=== PATIENT | female | born 1960 | race Caucasian/White ===

== ENCOUNTER 2019-10-15 07:23 | Emergency (ER) | payer OTHER ==
[~2019-10-15] VITALS: Ht 160 cm; Wt 79.4 kg
[2019-10-15 07:29] VITALS: BP_SYST 189
[2019-10-15] MEDS ORDERED: ONDANSETRON HCL 4 MG/2 ML VIAL IVP ONE (08:00)
[2019-10-15] MEDS ORDERED: LORazepam 2 MG/ML VIAL IVP ONE (08:00)
[2019-10-15] MEDS ORDERED: NACL 0.9% 1,000 ML IV ONE (08:00)
[2019-10-15] MEDS ORDERED: MECLIZINE HCL 25 MG TABLET (ANITVERT) PO ONE (08:00)
[2019-10-15 08:31] LABS: BASOPHILS % (AUTO) 0.4 % (0.0-2.0); EOSINOPHILS # (AUTO) 0.2 K/uL (0.0-0.4); EOSINOPHILS % (AUTO) 2.9 % (0.0-4.0); HEMATOCRIT 39.7 % (36-48); HEMOGLOBIN 13.6 g/dL (12.0-16.0); LYMPHOCYTES # (AUTO) 1.8 K/uL (1.0-5.5); LYMPHOCYTES % (AUTO) 21.9 % (20.5-51.5); MEAN CORPUSCULAR HEMOGLOBIN 32 pg (27-31); MEAN CORPUSCULAR HGB CONC 34 % (32-36); MEAN CORPUSCULAR VOLUME 93 fL (79.0-98.0); MONOCYTES # (AUTO) 0.7 K/uL (0.0-1.0); MONOCYTES % (AUTO) 8.5 % (1.7-9.3); NEUTROPHILS # (AUTO) 5.4 K/uL (1.8-7.7); NEUTROPHILS % (AUTO) 66.3 % (40.0-70.0); PLATELET COUNT (AUTO) 249 K/uL (130-430); RED BLOOD CELL COUNT(AUTO) 4.27 MIL/uL (4.2-6.2); RED CELL DISTRIBUTION WIDTH 14.2 % (9.0-15.0); WHITE BLOOD COUNT (AUTO) 8.2 K/uL (4.8-10.8)
[2019-10-15 08:49] LABS: CALCIUM 8.8 mg/dL (8.4-11.0); CREATININE 0.77 mg/dL (0.55-1.30)
[2019-10-15 08:54] LABS: ALBUMIN 3.4 g/dL (3.4-4.8); TOTAL BILIRUBIN 0.3 mg/dL (0.0-1.0)
[2019-10-15 09:25] LABS: BILIRUBIN,URINE NEGATIVE (NEGATIVE); BLOOD, URINE 2+ (NEGATIVE); CLARITY/URINE CLEAR (CLEAR); COLOR,URINE YELLOW (YELLOW); GLUCOSE,URINE NEGATIVE (NEGATIVE); KETONES,URINE NEGATIVE (NEGATIVE); LEUKOCYTE ESTERASE ,URINE TRACE (NEGATIVE); NITRITE, URINE NEGATIVE (NEGATIVE); PROTEIN URINE NEGATIVE (NEGATIVE); UROBILINOGEN,URINE 0.2 (0.2-1.0)
[2019-10-15 09:29] LABS: BACTERIA,URINE RARE /HPF (None Seen); RBC,URINE 0-3 /HPF (0-3)
[2019-10-15 09:30] LABS: BARBITURATE, URINE NEGATIVE (NEG <=200); BENZODIAZEPINE, URINE POSITIVE (NEG <=150); CANNABINOID, URINE NEGATIVE (NEG <=50); COCAINE, URINE NEGATIVE (NEG <=150); METHAMPHETAMINES SCREEN,URINE NEGATIVE (NEG <=500); OPIATE, URINE NEGATIVE (NEG <=100); PHENCYCLIDINE SCREEN,URINE NEGATIVE (NEG <=25); UR TRICYCLIC ANTIDEPRESSANTS NEGATIVE (NEG <=300); URINE AMPHETAMINE NEGATIVE (NEG <=500); URINE METHADONE NEGATIVE (NEG <=200); URINE OXYCODONE SCREEN NEGATIVE (NEG <=100); URINE PROPOXYPHENE SCREEN NEGATIVE (NEG <=300)
[2019-10-15 10:51] VITALS: BP_SYST 112
== END 2019-10-15 10:51 | disposition home or self-care (01) ==
LOC: SED 07:23
DX: R42 Dizziness and giddiness (principal); F41.9 Anxiety disorder, unspecified; R03.0 Elevated blood-pressure reading, without diagnosis of hypertension; F17.210 Nicotine dependence, cigarettes, uncomplicated
CPT/HCPCS: 36415; 80053; 80307; 81000; 85025; 93005; 96360; 99284; J2060; J7030; J8597; J2405

== ENCOUNTER 2022-07-19 15:16 | Inpatient (IN) | payer OTHER ==
[~2022-07-19] VITALS: Ht 160 cm; Wt 81.6 kg
--- NOTE | 2022-07-19 15:20 | NUR ---
ER DR. WILLS EXAMINING PT
[2022-07-19 15:22] VITALS: BP_SYST 157
--- NOTE | 2022-07-19 15:25 | NUR ---
RECEIVED PT FROM CLINTON HANSON. PT BIB FRIEND, PT STATES SHE WAS ON A PARK SWING, JUMPED OFF AND HEARD "POP" FROM LEFT KNEE ++PAIN. LEFT LEG DEFORMITY OBSERVED WITH STINT IN PLACE. PT IS AAOX4. NORMAL S1S2 NOTED. RESP E/U. ON R/A. DENIES N/V/D/C. SKIN INTACT, DISTAL PULSES NORMAL. SIDERAILS UP X2, FAMILY AT BEDSIDE.
--- NOTE | 2022-07-19 15:25 | NUR ---
Patient to ER bed 4 to gown for evaluation. Side rails up.
--- NOTE | 2022-07-19 15:45 | NUR ---
PT TAKEN FOR XRAY AT THIS TIME.
[2022-07-19 17:29] LABS: BASOPHILS # (AUTO) 0.1 K/uL (0.0-0.2); BASOPHILS % (AUTO) 0.5 % (0.0-2.0); EOSINOPHILS # (AUTO) 0.1 K/uL (0.0-0.4); EOSINOPHILS % (AUTO) 0.9 % (0.0-4.0); HEMATOCRIT 36.4 % (36-48); HEMOGLOBIN 12.4 g/dL (12.0-16.0); LYMPHOCYTES # (AUTO) 1.9 K/uL (1.0-5.5); LYMPHOCYTES % (AUTO) 12.5 % (20.5-51.5); MEAN CORPUSCULAR HEMOGLOBIN 31 pg (27-31); MEAN CORPUSCULAR HGB CONC 34 % (32-36); MEAN CORPUSCULAR VOLUME 90 fL (79.0-98.0); MONOCYTES # (AUTO) 0.9 K/uL (0.0-1.0); NEUTROPHILS % (AUTO) 80.1 % (40.0-70.0); PLATELET COUNT (AUTO) 325 K/uL (130-430); RED BLOOD CELL COUNT(AUTO) 4.04 MIL/uL (4.2-6.2); RED CELL DISTRIBUTION WIDTH 14.9 % (9.0-15.0); WHITE BLOOD COUNT (AUTO) 14.9 K/uL (4.8-10.8)
[2022-07-19] MEDS ORDERED: MORPHINE 2 MG/ML INJ. SYRINGE IVP ONE (17:30)
[2022-07-19 17:34] LABS: CREATININE 1.01 mg/dL (0.55-1.30); POTASSIUM 3.9 mmol/L (3.5-5.1)
[2022-07-19 17:39] LABS: ALBUMIN 3.7 g/dL (3.4-4.8); TOTAL BILIRUBIN 0.2 mg/dL (0.0-1.0)
[2022-07-19] MEDS ORDERED: PROPOFOL 200MG/ 20ML VIAL (DIPRIVAN) IV ONE (17:45)
--- NOTE | 2022-07-19 17:58 | NUR ---
DR. SOUZA AT BEDSIDE, PT TO HAVE L KNEE REDUCED AT THIS TIME. MORPHINE 2MG IVP GIVEN. R/T AND XRAY AT BEDSIDE.
--- NOTE | 2022-07-19 18:02 | NUR ---
MORPHINE IVP HELD TO REDUCE CHANCE OF HYPOTESION.
--- NOTE | 2022-07-19 18:10 | NUR ---
DR. SOUZA AND DR. WILLS AT BEDSIDE FOR LEFT KNEE REDUCTION: VS: B/P 180/93, HR 81, RR 18, 02 SAT 98% ON R/A. 1809:PROPOFOL 80MG IVP GIVEN. PT PLACED ON BAG MASK AT 15LPM, DAJA R/T MONITORING. 1811: PROPOFOL 20MG IVP GIVEN. 1814: DR. SOUZA COMPLETED REDUCTION, XRAY CONFIRMATION COMPLETED. PT OFF BAG MASK AND ON R/A. VS: B/P 156/85, HR 60, RR 20, 02 SAT 98% ON R/A. 1819: SPLINT AND SHERRIE WRAP PLACED TO LLE. DISTAL PULSES NORMAL. VS: B/P 142/88, HR 62, RR 16, 02 SAT 98%. PT RESTING COMFORTABLY.
--- NOTE | 2022-07-19 18:10 | NUR ---
DR. WILLS AND DR. SOUZA AT BESIDE PREFORMING LEFT KNEE REDUCTION. R/T AND XRAY AT BEDSIDE. 1807: JOS
[2022-07-19] MEDS ORDERED: fentaNYL CITRATE/PF 100 MCG/2 ML AMP IVP ONE (18:15)
[2022-07-19 18:42] LABS: PROTHROMBIN TIME 10.4 SECS (9.5-12.5)
[2022-07-19] MEDS ORDERED: ESCI10TA PO (18:45)
[2022-07-19] MEDS ORDERED: ALPR0.25 PO (18:46)
[2022-07-19] MEDS ORDERED: iohexoL 350 mgI/mL, 100 ML INFUS..BTL IV ONE ×3 (18:54→19:37)
--- NOTE | 2022-07-19 19:01 | NUR ---
# 20 gauge angiocath placed to RAC. Use of asceptic technique. Opsite placed over site. Blood return noted. Blood for lab drawn from site. Flushed with 10 cc of normal saline. No evidence of infiltration noted. Patient tolerated well.
--- NOTE | 2022-07-19 19:11 | NUR ---
PT TAKEN OFF MONITOR AND TAKEN FOR CT SCAN AT THIS TIME.
[2022-07-19] MEDS ORDERED: MORPHINE 4 MG INJ. 4 MG/ML VIAL IVP ONE (19:15)
--- NOTE | 2022-07-19 19:27 | NUR ---
ENDORSED PT TO CLINTON HUMPHREYS. ALL QUESTIONS AND CONCERNS ADDRESSED.
[2022-07-19] MEDS ORDERED: ONDANSETRON HCL 4 MG/2 ML VIAL IVP PRN (20:15)
[2022-07-19] MEDS ORDERED: ACETAMINOPHEN 325 MG TABLET PO PRN ×2 (20:15→23:45)
[2022-07-19] MEDS ORDERED: MORPHINE 4 MG INJ. 4 MG/ML VIAL IVP PRN (20:15)
[2022-07-19] MEDS ORDERED: NACL 0.9% 1,000 ML IV SCH (20:15)
[2022-07-19] MEDS ORDERED: HYDROcodone/ACETAMIN 5-325 MG TAB (NORCO/ VICODIN) PO PRN (20:15)
[2022-07-19] MEDS ORDERED: LORazepam 2 MG/ML VIAL IVP PRN (20:15)
--- NOTE | 2022-07-19 20:28 | NUR ---
Ortho Dr. Jorge at bedside going over closed vs open reduction with internal vs external fixation surgery with pt scheduled for tomorrow am. Ambrose at bedside.
--- NOTE | 2022-07-19 21:59 | NUR ---
Patient will be admitted to care of MD Jorge. Admitted to MED SURG unit. Will go to room 108A. Complete and up to date summary report printed. SBAR report given to CLINTON Carvajal with opportunity for questions.
[2022-07-19 22:00] VITALS: BP_SYST 147
[2022-07-19] MEDS ORDERED: TEMAZEPAM 15 MG CAPSULE PO PRN (23:45)
[2022-07-19] MEDS: D5/0.45 NS 1,000 ML IV SCH (23:45)
[2022-07-20] VITALS: BP_SYST 126
[2022-07-20 01:42] LABS: BILIRUBIN,URINE NEGATIVE (NEGATIVE); CLARITY/URINE CLEAR (CLEAR); COLOR,URINE YELLOW (YELLOW); GLUCOSE,URINE NEGATIVE (NEGATIVE); KETONES,URINE NEGATIVE (NEGATIVE); LEUKOCYTE ESTERASE ,URINE NEGATIVE (NEGATIVE); NITRITE, URINE NEGATIVE (NEGATIVE); PROTEIN URINE NEGATIVE (NEGATIVE); UROBILINOGEN,URINE 0.2 (0.2-1.0)
[2022-07-20] MEDS: HYDROmorphone 1 MG/ML INJ. CARTRIDGE IVP PRN ×4 (01:48→22:30)
[2022-07-20 02:04] VITALS: BP_SYST 148
[2022-07-20 02:09] LABS: BLOOD, URINE TRACE (NEGATIVE)
[2022-07-20 02:11] LABS: BACTERIA,URINE FEW /HPF (None Seen); MUCUS,URINE None Seen /LPF (None Seen); WBC,URINE 0-3 /HPF (0-3)
--- NOTE | 2022-07-20 05:25 | NUR ---
CONSULTATION PAGED/CALLED Reason for Consultation: CARDIAC CLAERANCE Person Who was Notified: Consulting Physician: ANATOLIY Clinical Operations Leader Specialty: Ordering Physician: JAMES
[2022-07-20 06:48] LABS: BASOPHILS # (AUTO) 0.1 K/uL (0.0-0.2); BASOPHILS % (AUTO) 0.5 % (0.0-2.0); EOSINOPHILS # (AUTO) 0.1 K/uL (0.0-0.4); EOSINOPHILS % (AUTO) 0.7 % (0.0-4.0); HEMATOCRIT 33.9 % (36-48); HEMOGLOBIN 11.5 g/dL (12.0-16.0); LYMPHOCYTES # (AUTO) 2.1 K/uL (1.0-5.5); LYMPHOCYTES % (AUTO) 17.6 % (20.5-51.5); MEAN CORPUSCULAR HEMOGLOBIN 31 pg (27-31); MEAN CORPUSCULAR HGB CONC 34 % (32-36); MEAN CORPUSCULAR VOLUME 91 fL (79.0-98.0); MONOCYTES # (AUTO) 1.1 K/uL (0.0-1.0); NEUTROPHILS # (AUTO) 8.7 K/uL (1.8-7.7); NEUTROPHILS % (AUTO) 72.2 % (40.0-70.0); PLATELET COUNT (AUTO) 317 K/uL (130-430); RED BLOOD CELL COUNT(AUTO) 3.73 MIL/uL (4.2-6.2); RED CELL DISTRIBUTION WIDTH 15.1 % (9.0-15.0); WHITE BLOOD COUNT (AUTO) 12.1 K/uL (4.8-10.8)
--- NOTE | 2022-07-20 06:50 | NUR ---
PATIENT IS FOR SURGICAL PROCEDURE THIS MORNING ,PATIENT REFUSED CHLORAHEXIDEN BATH,SHE SAID THAT SHE WANT TO REST AND DOES NOT WANT TO BE DISTURBED
--- NOTE | 2022-07-20 06:53 | NUR ---
[facility] CATH ,#16 INSERTED PER DRHANCOCK ORDER, PATIENT TOLERATEDPROCEDURE WELL
--- NOTE | 2022-07-20 06:58 | NUR ---
[facility] CATH Fr [address] MCGILL, STERILE PROCEDURE UTILIZED,PATIENT TOLERATEDPROCEDURE WELL
[2022-07-20] MEDS ORDERED: ALPR0.5T PO (07:24)
[2022-07-20 07:33] LABS: ALBUMIN 3.2 g/dL (3.4-4.8); CALCIUM 8.8 mg/dL (8.4-11.0); CREATININE 1.07 mg/dL (0.55-1.30); TOTAL BILIRUBIN 0.5 mg/dL (0.0-1.0)
[2022-07-20 08:00] VITALS: BP_SYST 150
[2022-07-20] MEDS: ALPRAZolam 0.25 MG TABLET PO PRN ×3 (08:27→20:17)
[2022-07-20] MEDS ORDERED: ceFAZolin SODIUM 2 GM in D5W 100 ML IV SCH (10:00)
[2022-07-20] MEDS: D5/0.45 NS 1,000 ML IV SCH ×2 (10:25→22:37)
--- NOTE | 2022-07-20 10:56 | NUR ---
Received patient A&O x 4, NPO since midnight, IVF @ 100 mLs per hour, ritter in place. Pt denies pain at this time. Echo done at bedside. Doctor Jb @ the bedside, cleared patient from cardiac standpoint to go to surgery. Pt escorted to OR, with OR team. Consent signed and pre op check was completed. ANCEF 2 g/gm IVPB given per MD order, updated family.
[2022-07-20] MEDS ORDERED: WATER FOR IRRIGATION,STERILE 1,000 ML IRRIG.SOLN IR ONE (11:00)
[2022-07-20] MEDS ORDERED: PROPOFOL 200MG/ 20ML VIAL (DIPRIVAN) IV ONE (11:00)
[2022-07-20] MEDS ORDERED: ONDANSETRON HCL 4 MG/2 ML VIAL ONE (11:00)
[2022-07-20] MEDS ORDERED: MIDAZOLAM HCL 5 MG/5 ML VIAL ONE (11:00)
[2022-07-20] MEDS ORDERED: LR 1,000 ML IV.SOLN IV ONE (11:00)
[2022-07-20] MEDS ORDERED: NS IRRIG SOLN 1000 ML IR ONE (11:00)
[2022-07-20] MEDS ORDERED: fentaNYL CITRATE/PF 100 MCG/2 ML AMP IVP PRN ×2 (12:00)
[2022-07-20] MEDS ORDERED: ONDANSETRON HCL 4 MG/2 ML VIAL IVP PRN (12:00)
[2022-07-20] MEDS ORDERED: METOCLOPRAMIDE HCL 10 MG/2 ML VIAL IVP PRN (12:00)
[2022-07-20 13:05] VITALS: BP_SYST 108
--- NOTE | 2022-07-20 15:32 | NUR ---
HOLD PT KATRINA PER RN PATIENT JUST CAME OUT OF SURGERY.
[2022-07-20 16:00] VITALS: BP_SYST 110
[2022-07-20] MEDS: CEFAZOLIN 1 GM IVPB PREMIX 50 ML IV SCH (18:35)
[2022-07-20] MEDS ORDERED: ceFAZolin SODIUM 1 GM in D5W 100 ML IV SCH (19:00)
[2022-07-20 19:30] VITALS: BP_SYST 150
--- NOTE | 2022-07-20 19:30 | NUR ---
PM ASSESSMENT; -Pt is a/ox4, resting in bed. pt denies any chest pain,pain,sob, or any acute distress. IV site LAC patent, no s/s any infiltration noted. IVF infusing well, no s/s any infiltration noted. Discussed poc,pain mgt, all safety measures to use call light for assistance or if experiencing any acute distress or pain, pt and family verbalized understanding. Left knee with old blood stained noted. Pt is able to wiggle all toes and feel sensation of left foot. Johnston cath w/ gravity drains yellow urine output. fall precaution in place, side rails x3,call light w/in reach. Cont to monitor pt.
--- NOTE | 2022-07-20 20:51 | NUR ---
NOTES; SPOKE WITH [facility]-ANSWERING SERVICE TO PAGE Johnny ODONNELL REGARDING PT IS C/O LEFT LEG MUSCLE SPASM. WAITING FOR MD TO RETURN CALLBACK.
--- NOTE | 2022-07-20 20:57 | NUR ---
NOTES; -NOTIFIED Johnny ODONNELL REGARDING PT IS C/O LEFT LEG MUSCLE SPASM. ROXABIN 500MG PO TID PRN FOR MUSCLE SPASM.
[2022-07-20] MEDS ORDERED: methocarbamoL 500 MG TABLET PO PRN (21:00)
--- NOTE | 2022-07-20 21:11 | NUR ---
NOTES; -GAVE ROBAXIN 500MG PO UPON PT'S REQUEST FOR LEFT LEG MUSCLE SPASM. CONT TO MONITOR PT.
--- NOTE | 2022-07-20 22:30 | NUR ---
PAIN MGMT; -Pt is c/o left leg pain sharp 9/10, gave Dilaudid 1mg IVP upon pt's request. will reassess pain level w/in 30 mins. Cont to monitor pt.
--- NOTE | 2022-07-21 00:20 | NUR ---
ROUNDS; -Pt is asleep. No s/s any pain,sob,or any acute distress noted. No family or visitor is at bedside. All safety measures in place. Call light w/in reach. Cont to monitor pt.
[2022-07-21 00:38] VITALS: BP_SYST 135
[2022-07-21] MEDS: CEFAZOLIN 1 GM IVPB PREMIX 50 ML IV SCH (02:21)
[2022-07-21] MEDS: HYDROmorphone 1 MG/ML INJ. CARTRIDGE IVP PRN ×4 (02:22→14:35)
--- NOTE | 2022-07-21 02:22 | NUR ---
PAIN MGMT; -Pt is c/o left leg pain sharp 9/10, gave Dilaudid 1mg IVP upon pt's request. Dtrs came from outside and now they are in the room. will reassess pain level w/in 30 mins. Cont to monitor pt.
--- NOTE | 2022-07-21 03:00 | NUR ---
NOTES; -Pt is resting in bed comfortably. Dtrs left the bedside. No visitor is at bedside this time. Cont to monitor pt.
[2022-07-21] MEDS: D5/0.45 NS 1,000 ML IV SCH ×2 (06:33→14:37)
--- NOTE | 2022-07-21 06:33 | NUR ---
CLOSING NOTES; PAIN MGMT -Pt is resting in bed. Pt is c/o left knee pain, gave Dilaudid 1mg IVP for pain mgmt. IV site patent, no s/s any infiltration noted. Drsg of left knee still old blood stained noted. Johnston cath w/ gravity drains yellow urine output. Fall precaution in place,bed alarmed, side rails x3,call light w/in reach. Will endorse to next nurse to cont care.
--- NOTE | 2022-07-21 07:15 | NUR ---
ENDORSED TO MARIANNA TO CALL VALENTIN (DTR) REGARDING WHEN PHYSICAL THERAPIST ARRIVES.
[2022-07-21 07:42] LABS: CALCIUM 8.3 mg/dL (8.4-11.0); CREATININE 0.88 mg/dL (0.55-1.30); POTASSIUM 4.2 mmol/L (3.5-5.1)
[2022-07-21 07:46] LABS: BASOPHILS % (AUTO) 0.3 % (0.0-2.0); EOSINOPHILS # (AUTO) 0.1 K/uL (0.0-0.4); EOSINOPHILS % (AUTO) 0.6 % (0.0-4.0); HEMOGLOBIN 10.9 g/dL (12.0-16.0); LYMPHOCYTES # (AUTO) 1.9 K/uL (1.0-5.5); LYMPHOCYTES % (AUTO) 16.4 % (20.5-51.5); MEAN CORPUSCULAR HEMOGLOBIN 31 pg (27-31); MEAN CORPUSCULAR HGB CONC 34 % (32-36); MEAN CORPUSCULAR VOLUME 92 fL (79.0-98.0); MONOCYTES # (AUTO) 1.2 K/uL (0.0-1.0); MONOCYTES % (AUTO) 10.2 % (1.7-9.3); NEUTROPHILS # (AUTO) 8.5 K/uL (1.8-7.7); NEUTROPHILS % (AUTO) 72.5 % (40.0-70.0); PLATELET COUNT (AUTO) 271 K/uL (130-430); RED BLOOD CELL COUNT(AUTO) 3.49 MIL/uL (4.2-6.2); RED CELL DISTRIBUTION WIDTH 14.9 % (9.0-15.0); WHITE BLOOD COUNT (AUTO) 11.7 K/uL (4.8-10.8)
[2022-07-21 08:00] VITALS: BP_SYST 117
--- NOTE | 2022-07-21 08:47 | NUR ---
Shift Summary: patient is AAOX4. vitals are stable. pulses present on ble extremities. introduced myself to patient upon start of shift. informed patient on plan and goals for the day. educated patient repositioning hourly to avoid skin breakdown and informed next pain prn medication is available approx 1030 . spoke to patients daughter. daughter requested for breakthrough pain medication and to give IV pain medication around the clock. informed daughter i will ask physician for break through pain medication. also educated daughter on importance of transitioning patient to oral pain medications and decreasing IV pain medication to prepare for discharge if patients daughter is expecting her to be discharge today or tomorrow. will continue care for the day. informed patient and daughter to ask for me for any other questions or concerns. call light within reach. bed set to low and locked.
[2022-07-21] MEDS: ALPRAZolam 0.25 MG TABLET PO PRN ×2 (09:41→21:47)
[2022-07-21] MEDS: ENOXAPARIN SODIUM 30 MG/0.3 ML SYRINGE SUBCUT SCH (09:42)
[2022-07-21 11:29] VITALS: BP_SYST 135
[2022-07-21 15:37] VITALS: BP_SYST 154
[2022-07-21] MEDS ORDERED: NALOXONE HCL 0.4 MG/ML AMP (NARCAN) IVP PRN (15:45)
[2022-07-21] MEDS: HYDROcodone/ACETAMIN 5-325 MG TAB (NORCO/ VICODIN) PO PRN ×2 (19:08→23:03)
--- NOTE | 2022-07-21 19:30 | NUR ---
Opening note Pt is a/o x4, lying in bed with daughters and bedside. No s/s of respiratory distress. Breathing even and unlabored on RA. Pt is postop ORIF of the left knee with rods in place. Dressing has moderate dry blood. Pt given medication for pain control and repositioned for comfort. Fall and safety precautions in place with bed in lowest position, bed alarm on, and call light within reach
[2022-07-21 20:00] VITALS: BP_SYST 131
[2022-07-21] MEDS: DOCUSATE SODIUM 250 MG CAPSULE PO SCH (21:36)
--- NOTE | 2022-07-22 00:15 | NUR ---
Rounds Pt resting in bed, repositioned for comfort. VSS. Fall and safety checks in place
[2022-07-22 00:17] VITALS: BP_SYST 155
[2022-07-22] MEDS: HYDROcodone/ACETAMIN 5-325 MG TAB (NORCO/ VICODIN) PO PRN ×5 (03:04→22:15)
--- NOTE | 2022-07-22 07:05 | NUR ---
Closing note Pt is awake lying in bed. No s/s of respiratory distress. Breathing even and unlabored on RA. Does not complain of any pain in her knee for now, denied pain medication. Johnston catheter intact and patent with fluids running at ordered rate. All needs met throughout shift. Fall and safety precautions in place with bed in lowest position, bed alarm on, and call light within reach Addendum: 07/22/22 at 0707 by Kathy Ridley RN daughter April wants to be present when PT comes to see the pt. Will endorse to day shift
[2022-07-22 07:08] LABS: BASOPHILS # (AUTO) 0.1 K/uL (0.0-0.2); BASOPHILS % (AUTO) 0.5 % (0.0-2.0); EOSINOPHILS # (AUTO) 0.1 K/uL (0.0-0.4); EOSINOPHILS % (AUTO) 0.6 % (0.0-4.0); HEMATOCRIT 31.4 % (36-48); HEMOGLOBIN 10.8 g/dL (12.0-16.0); LYMPHOCYTES # (AUTO) 1.9 K/uL (1.0-5.5); LYMPHOCYTES % (AUTO) 16.2 % (20.5-51.5); MEAN CORPUSCULAR HEMOGLOBIN 31 pg (27-31); MEAN CORPUSCULAR HGB CONC 34 % (32-36); MEAN CORPUSCULAR VOLUME 91 fL (79.0-98.0); MONOCYTES % (AUTO) 8.4 % (1.7-9.3); NEUTROPHILS # (AUTO) 8.7 K/uL (1.8-7.7); NEUTROPHILS % (AUTO) 74.3 % (40.0-70.0); PLATELET COUNT (AUTO) 272 K/uL (130-430); RED BLOOD CELL COUNT(AUTO) 3.45 MIL/uL (4.2-6.2); RED CELL DISTRIBUTION WIDTH 14.8 % (9.0-15.0); WHITE BLOOD COUNT (AUTO) 11.6 K/uL (4.8-10.8)
[2022-07-22 07:22] LABS: CALCIUM 9.1 mg/dL (8.4-11.0); CREATININE 0.85 mg/dL (0.55-1.30); POTASSIUM 4.1 mmol/L (3.5-5.1)
[2022-07-22 07:56] VITALS: BP_SYST 144
[2022-07-22 08:00] VITALS: BP_SYST 144
[2022-07-22] MEDS: DOCUSATE SODIUM 250 MG CAPSULE PO SCH ×2 (08:08→21:00)
[2022-07-22] MEDS: ENOXAPARIN SODIUM 30 MG/0.3 ML SYRINGE SUBCUT SCH (08:09)
[2022-07-22] MEDS: ALPRAZolam 0.25 MG TABLET PO PRN (09:29)
[2022-07-22] MEDS ORDERED: HYDR-3919 PO (11:02)
[2022-07-22] MEDS ORDERED: DOCU250C71 PO (11:02)
[2022-07-22] MEDS ORDERED: LOVI30 SUBCUT ×2 (11:02)
[2022-07-22] MEDS ORDERED: ONDA-8 TL (11:02)
[2022-07-22] MEDS ORDERED: METH-799 PO (11:02)
[2022-07-22] MEDS ORDERED: IBUP-1971 PO (11:02)
[2022-07-22 11:28] VITALS: BP_SYST 135
--- NOTE | 2022-07-22 12:49 | NUR ---
Camp Maintenance Supervisor CERTIFIED TOWER CLIMBER recieved a request to provide pts. and dauther with a letter stating pt. is at [facility]. CERTIFIED TOWER CLIMBER took stated letter to pts. room and pt. read letter. Pt. asked if CERTIFIED TOWER CLIMBER could specify that daughter was caring for mom while in the hospital. CERTIFIED TOWER CLIMBER stated she could not and the letter had to be very limited. CERTIFIED TOWER CLIMBER will remain available as needed.
--- NOTE | 2022-07-22 14:03 | NUR ---
Patient to receive Wheelchair between 4 and 5 PM from [employer] @bedside.
[2022-07-22 15:26] VITALS: BP_SYST 145
--- NOTE | 2022-07-22 16:37 | NUR ---
Pt is off the ritter since 0900 this morning and voiding with bedpan at 1400 500 ml. Patient is anxious to go home and is waiting for her wheelchair to be delivered to the bed side.
--- NOTE | 2022-07-22 19:00 | NUR ---
RECEIVED ALERT AND ORIENTED X 4. PT SELF TURNS, VITALS DONE, PT AWAITS A WHEEL CHAIR FROM [facility] FOR HOME USE
--- NOTE | 2022-07-22 22:00 | NUR ---
PT INFORMED THAT [facility] WILL NOT PROVIDE HER WITH A WHEEL CHAIR VITALS DONE. PT MEDICATED FOR PAIN
[2022-07-22 22:23] VITALS: BP_SYST 145
--- NOTE | 2022-07-23 | NUR ---
ASSISTED WITH A BED [facility] VITALS DONE
[2022-07-23] MEDS: HYDROcodone/ACETAMIN 5-325 MG TAB (NORCO/ VICODIN) PO PRN ×2 (02:42→08:35)
--- NOTE | 2022-07-23 06:30 | NUR ---
PT AWAITS to go Home today
--- NOTE | 2022-07-23 07:30 | NUR ---
Opening Notes Pt. is AAOx4 no signs of acute distress. Pt. has left leg elevated, dressing is clean dry and intact with external fixation in place, fall precautions in place. Waiting on wheelchair to discharge patient home.
[2022-07-23 08:15] VITALS: BP_SYST 146
[2022-07-23] MEDS: DOCUSATE SODIUM 250 MG CAPSULE PO SCH (08:21)
[2022-07-23] MEDS: ALPRAZolam 0.25 MG TABLET PO PRN (08:21)
[2022-07-23] MEDS: ENOXAPARIN SODIUM 30 MG/0.3 ML SYRINGE SUBCUT SCH (08:23)
[2022-07-23] MEDS ORDERED: LOVI40 SQ ×2 (11:13→11:55)
--- NOTE | 2022-07-23 12:09 | NUR ---
This morning, Woody MARES ,January, reported to me, the patient has no benefit for DME. I asked her why the patient and I were not informed yesterday . She did not have an answer for me. I informed her that the patient could not be discharged safely yesterday without the wheelchair and Woody MARES told me the wheelchair was being delivered until 7:30 PM last night. Woody will need to be responsible for last nights hospital stay because the patient could not be discharged safely without the wheelchair. The family has a wheelchair for the patient and she will be discharged to home today with the wheelchair with elevated leg rest on the (L). Patient was given information for [facility] if she needs other DME, since her insurance does not cover DME.
[2022-07-23 12:50] VITALS: BP_SYST 140
--- NOTE | 2022-07-23 13:15 | NUR ---
DISCHARGE NOTES Pt. is AAOx4, no pain at this time. Pt.'s daughter has brought wheelchair and is taking the patient home. Educated both patient and daughter on Discharge instructions and signs and symptoms of infection both patient and daughter verbalized their understanding and stated they had no further questions. Pt. has stated that all belongings are being taken home and accounted for.
--- NOTE | 2022-07-24 08:23 | NUR ---
Dispo code 01
== END 2022-07-23 13:20 | disposition home or self-care (01) | DRG 489 ==
LOC: SED 15:16 → SMU 20:02
PROVIDERS: ADMIT Orthopaedic Surgery Sports Medicine; ATTEND Orthopaedic Surgery Sports Medicine
PROC: 0SSDXZZ Reposition Left Knee Joint, External Approach (ICD-10-PCS; 2022-07-19)
PROC: 0SSDXZZ Reposition Left Knee Joint, External Approach (ICD-10-PCS; 2022-07-19)
PROC: 0SS Lower Joints, Reposition (ICD-10-PCS; principal; 2022-07-20 11:00)
DX: S82.142A Displaced bicondylar fracture of left tibia, initial encounter for closed fracture (principal); F41.9 Anxiety disorder, unspecified; F17.200 Nicotine dependence, unspecified, uncomplicated; S83.105A Unspecified dislocation of left knee, initial encounter; W17.89XA Other fall from one level to another, initial encounter; Z20.822 Contact with and (suspected) exposure to COVID-19; Z90.49 Acquired absence of other specified parts of digestive tract; Z79.899 Other long term (current) drug therapy; Y93.89 Activity, other specified; Y92.89 Other specified places as the place of occurrence of the external cause; Y99.8 Other external cause status
CPT/HCPCS: 36415; 71045; 73560-TC; 73590-TC; 73706; 76000; 76376; 80048; 80053; 80061; 81000; 85025; 85610-TC; 85730-TC; 87081; 93005; 93306; 96374; 96375; 96376; 97116-GP; 97530-GP; 99291; J0690; J1170; J1650; J2250; J2270; J2405; J2704; J3010; J7060; J7120; Q9967